=== PATIENT | male | born 2000 | race Hispanic/Latino ===

== ENCOUNTER 2021-07-09 12:26 | Emergency (ER) | payer OTHER, SELFPAY ==
--- NOTE | ~2021-07-09 | XR_ITS ---
EXAMINATION: XR hand RT min 3V DATE: 07/09/2021 13:22 INDICATION: Right hand dog bite. Right hand pain. TECHNIQUE: 3 views of right hand were obtained. COMPARISON: None. FINDINGS: Bone alignment is normal. No fracture. Joint spaces are well maintained. No radiopaque fore ign body. There is soft tissue gas between third and fourth rays, consistent with laceration. IMPRESSION: 1. No fracture or radiopaque foreign body. Reviewed, dictated and finalized at location A.
[2021-07-09 12:43] VITALS: BP 123/75; PULSE 80; RESP 16; TEMP 37.1; O2SAT 99
--- NOTE | 2021-07-09 12:44 | ED.WOUNDLAC ---
HPI - Wound/Laceration General Chief Complaint: Wound/Laceration Stated Complaint: Dog Bite Time Seen by Provider: 07/09/21 12:45 Source: patient, family, RN notes reviewed and old records reviewed Mode of arrival: ambulatory Limitations: no limitations History of Present Illness HPI narrative: 20-year-old male presents to the [facility] with complaints of a dog bite to his right hand. 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 Small puncture wound noted at the base of the fourth finger both dorsal and palmar aspect. Bleeding is controlled His last Tdap was when he was probably in high school. Related Data Allergies Allergy/AdvReac Type Severity Reaction Status Date / Time No Known Allergies Allergy Verified 07/09/21 12:49 Review of Systems Review of Systems: All systems reviewed & are unremarkable except as noted in HPI and below Constitutional: Constitutional: Reports no additional constitutional complaints, Denies chills and Denies fever(s) Eyes: Eyes: Reports no additional eye complaints ENT: Reports system reviewed and no additional complaints, except as documented Cardiovascular: Cardiovascular: Reports no additional cardiovascular complaints, Denies chest pain and Denies dyspnea Respiratory: Respiratory: Reports no additional respiratory complaints, Denies cough and Denies dyspnea Gastrointestinal: Gastrointestinal: Reports no additional gastrointestinal complaints, Denies abdominal pain, Denies nausea and Denies vomiting Musculoskeletal: Musculoskeletal: Reports no additional musculoskeletal complaints Integumentary/Breasts: Skin/Breast: Reports as per HPI Comments: Puncture wounds right hand Neurologic: Reports system reviewed and no additional complaints, except as documented Psychiatric: Psychiatric: Reports no additional psychiatric complaints Allergic/Immunologic: Allergic/Immunologic: Reports no additional allergic/immunologic complaints [facility] Past Medical History Medical History No significant medical problems Surgical History Surgical History (Updated 07/09/21 @ 20:30 by Yessi Zuleta APRN) No pertinent past surgical history Social History Social History (Updated 07/09/21 @ 20:30 by Yessi Zuleta APRN) Gender identity (if verbalized by the patient): Male Comments At the time of my signature, I reviewed and agree with the nursing past medical, surgical, social, and family history. There is no relevant family history pertinent to the patient complaint. Exam Const: General: healthy appearing, no acute distress and alert Nutritional Appearance: well nourished Orientation/consciousness: patient oriented x3 Limitations: no limitations HENMT: Head: normal to inspection Ears: external ears normal Eyes: Pupils: Equal, round and reactive pupils present Neck: Neck: normal visual inspection, no lymphadenopathy and no meningeal signs Chest: Chest palpation & inspection: normal inspection of the chest Resp: Effort & Inspection: normal respiratory effort Auscultation: clear to auscultation bilaterally Cardio: Rate: regular rate Rhythm: regular rhythm : General: Yes no CVA tenderness Back/Spine/Pelvis: Back: no CVA tenderness Skin: General skin exam: normal color Wounds: wounds noted Neuro: General: patient oriented x3, moves all extremities, no meningeal signs and no focal motor deficits Cranial nerves: Yes Equal, round and reactive pupils present Speech: normal speech Gait exam (Neuro): Normal gait present Extrem: General: normal to inspection Right upper extremity: Extremity exam: right hand abnormal to inspection joint swelling (Base of fourth finger); no deformity, normal capillary refill and puncture wound (Plantar and dorsal aspect base of fourth finger with swelling, puncture wounds less than half centimeter, patient reports a dog bite) Psych: Appeara
[2021-07-09] MEDS: POVIDONE-IODINE 10% SOLUTION 118 ML BOTTLE 50 ML TOPICAL (13:26)
[2021-07-09] MEDS: NACL 0.9% IRRIG BAG 1,000 ML 1000 ML IRRIGATION (13:26)
[2021-07-09] MEDS: TETANUS,DIPHTHERIA,AC PERTUSSIS ADULT (0.5 ML) BOOSTRIX IM (13:51)
== END 2021-07-09 14:05 | disposition home or self-care (01) ==
PROVIDERS: Emergency Provider Nurse Practitioner
DX: S61.431A Puncture wound without foreign body of right hand, initial encounter (principal); W54.0XXA Bitten by dog, initial encounter; Y99.0 Civilian activity done for income or pay; Z23 Encounter for immunization
CPT/HCPCS: 73130; 90471; 90715; 99203; G0463; J7030

== ENCOUNTER 2022-10-15 16:17 | Emergency (ER) | payer OTHER, SELFPAY ==
[2022-10-15 16:34] VITALS: BP 126/70; PULSE 67; RESP 16; TEMP 37; O2SAT 100
--- NOTE | 2022-10-15 17:47 | ED.GENADULT ---
HPI - General Adult General Chief complaint: Upper Respiratory Infection Stated complaint: Top Lip Pain Source: patient Mode of arrival: ambulatory Limitations: no limitations History of Present Illness HPI narrative: Patient presents requesting a note to excuse him from work today. 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 He woke up around noon today noted some minor swelling to the upper lip so he called off work today. He states that his swelling has since improved. He denies any difficulty breathing or swallowing. Denies any swelling of the tongue. No hx of similar symptoms in the past. He does smoke marijuana and uses an electronic cigarette. He is not on an arnol inhibitor. Related Data Home Medications Medication Instructions Recorded Confirmed No Home Medications 10/15/22 10/15/22 Allergies Allergy/AdvReac Type Severity Reaction Status Date / Time No Known Allergies Allergy Verified 10/15/22 16:32 Review of Systems Review of Systems: CONSTITUTIONAL: Denies fever, chills, or sweats. EYES: Denies visual changes, redness, or discharge. ENT: Reports mild swelling to the upper lip earlier today, now near-resolved. Denies rhinorrhea, congestion, sore throat, or otalgia. CARDIOVASCULAR: Denies chest pain, palpitations, or edema. RESPIRATORY: Denies cough or dyspnea. GASTROINTESTINAL: Denies abdominal pain, nausea, vomiting, or diarrhea. GENITOURINARY: Denies dysuria or hematuria. SKIN: Denies rash or itching. MUSCULOSKELETAL: Denies back pain, joint pain, or myalgia. NEUROLOGIC: Denies headache, numbness, dizziness, or weakness. PSYCHIATRIC: Denies anxiety or depression. [facility] Past Medical History Medical History No significant medical problems Surgical History Surgical History (Updated 07/09/21 @ 20:30 by Yessi Zuleta APRN) No pertinent past surgical history Family History Family History Mother Family history non-contributory Social History Social History Smoking status: Current every day smoker Tobacco type: e-cigarettes/vaping Alcohol intake: current Alcohol use details: social Substance use: current Substance use type: marijuana Living arrangements: alone Additional occupation/education comments: mixing operator Gender identity (if verbalized by the patient): Male Spiritual care concerns: No Exam Narrative: GENERAL: Well-appearing, well-nourished, and in no acute distress. HEAD: Normocephalic, atraumatic. EYES: PERRLA and EOMI. ENT: Nares clear, no rhinorrhea or epistaxis. Mucous membranes moist. I do not appreciate any lip swelling on my exam. Oropharynx without tonsillar hypertrophy exudate or other lesions. Bilateral TMs pearly de luna nonbulging NECK: Supple. No adenopathy or masses. No carotid bruits or JVD CHEST: Clear to auscultation. No respiratory distress. No wheezes rales or rhonchi HEART: Regular rate and rhythm. No murmur heard. Normal peripheral pulses. ABDOMEN: Soft, nontender, nondistended, normal active bowel sounds. EXTREMITIES: Normal range of motion. No edema. SKIN: Warm, dry, no rash. NEURO: No focal deficits. Alert and oriented x3. PSYCH: Normal mood and affect. Course Course Emergency Course: This is a 21-year-old male that presented for evaluation of lip swelling that occurred earlier today but is now on your resolved. He indicates he simply needs a note to excuse him from work today. He has no evidence of airway impairment. He was advised to take Benadryl in the event that he has mild swelling. He has moderate to severe swelling or difficulty breathing or swallowing he is to go to the emergency department. He ma
== END 2022-10-15 17:51 | disposition home or self-care (01) ==
PROVIDERS: Emergency Provider Nurse Practitioner
DX: R22.0 Localized swelling, mass and lump, head (principal); F17.290 Nicotine dependence, other tobacco product, uncomplicated; F12.90 Cannabis use, unspecified, uncomplicated
CPT/HCPCS: 99211; G0463